=== PATIENT | male | born 1950 | race Caucasian/White ===

== ENCOUNTER 2024-10-03 11:34 | Outpatient (CLI) | payer MEDICARE, BC, SELFPAY ==
--- NOTE | 2024-10-03 12:50 | P.ANES_ITS ---
Anesthesia Charges Start Date/Time Anesthesia Start Date: 10/03/24 Anesthesia Start Time: 12:13 Stop Date/Time Anesthesia Stop Date: 10/03/24 Anesthesia Stop Time: 12:59 Summary Extremes of Age - Over 70 or under 1: MDA Coding CPT Codes CPT Codes: ANES LWR INTST NDSC NOS - 57884 ([id number]) P2 - PATIENT W/MILD SYST DISEASE, QK - CHANNEL LAYER 2-4 CNCRNT ANES PROC, QX - FRAUD EXAMINER SVC W/ MD MED DIRECTION Additional Codes: Summary - Extremes of Age - Over 70 or under 1: MDA ([id number])
--- NOTE | 2024-10-03 12:50 | W.ANESCHARGE ---
Anesthesia Charges Start Date/Time Anesthesia Start Date: 10/03/24 Anesthesia Start Time: 12:13 Stop Date/Time Anesthesia Stop Date: 10/03/24 Anesthesia Stop Time: 12:59 Summary Extremes of Age - Over 70 or under 1: MDA Coding CPT Codes CPT Codes: ANES LWR INTST NDSC NOS - 78885 ([id number]) P2 - PATIENT W/MILD SYST DISEASE, QK - COLLEGE OR UNIVERSITY BUSINESS MANAGER 2-4 CNCRNT ANES PROC, QX - DIRECTOR STARS SVC W/ MD MED DIRECTION Additional Codes: Summary - Extremes of Age - Over 70 or under 1: MDA ([id number])
--- NOTE | 2024-10-03 13:06 | P.ANES_ITS ---
Anesthesia Charges Start Date/Time Anesthesia Start Date: 10/03/24 Anesthesia Start Time: 12:13 Stop Date/Time Anesthesia Stop Date: 10/03/24 Anesthesia Stop Time: 12:59 Summary Extremes of Age - Over 70 or under 1: MILLER HEAD WET PROCESS Coding CPT Codes CPT Codes: VIELKA LWR INTST NDSC NOS - 02299 ([id number]) P2 - PATIENT W/MILD SYST DISEASE, QK - MANDREL PULLER 2-4 CNCRNT ANEEsha PROC, QX - MILLER HEAD WET PROCESS SVC W/ MD MED DIRECTION Additional Codes: Summary - Extremes of Age - Over 70 or under 1: MILLER HEAD WET PROCESS ([id number])
--- NOTE | 2024-10-03 13:06 | W.ANESCHARGE ---
Anesthesia Charges Start Date/Time Anesthesia Start Date: 10/03/24 Anesthesia Start Time: 12:13 Stop Date/Time Anesthesia Stop Date: 10/03/24 Anesthesia Stop Time: 12:59 Summary Extremes of Age - Over 70 or under 1: KOSHER DIETARY SERVICE SUPERVISOR Coding CPT Codes CPT Codes: VIELKA LWR INTST NDSC NOS - 26502 ([id number]) P2 - PATIENT W/MILD SYST DISEASE, QK - BREASTER 2-4 CNCRNT ANEEsha PROC, QX - KOSHER DIETARY SERVICE SUPERVISOR SVC W/ MD MED DIRECTION Additional Codes: Summary - Extremes of Age - Over 70 or under 1: KOSHER DIETARY SERVICE SUPERVISOR ([id number])
== END 2024-10-03 11:35 | disposition home or self-care (01) ==
PROVIDERS: PCP Family Medicine; Visit Provider Surgery
DX: D12.2 Benign neoplasm of ascending colon (principal); D12.3 Benign neoplasm of transverse colon; D12.8 Benign neoplasm of rectum; C80.1 Malignant (primary) neoplasm, unspecified; Z86.0100 Personal history of colon polyps, unspecified; R59.0 Localized enlarged lymph nodes; R19.7 Diarrhea, unspecified; R68.81 Early satiety
CPT/HCPCS: 00811; 36415; 45380; 45385; 82105; 82378; 84153; 84703; 86301; 88305; 99100; J2704

== ENCOUNTER 2024-10-18 07:04 | Outpatient (CLI) | payer MEDICARE, BC, SELFPAY ==
--- NOTE | 2024-10-18 07:15 | CRLHL7_ITS ---
For Patients: As a result of the Century Cures Act, medical imaging exams and procedure reports are released immediately into your electronic medical record. You may view this report before your referring provider. If you have questions, please contact your health care provider. Indication: SKIN CANCER Technique: Noncontrast sagittal T1, axial FLAIR, T2 turbo spine echo, and diffusion weighted images. Supplemental post contrast T1 weighted axial and coronal sequences are provided after administration of 30 cc Dotarem gadolinium-based IV contrast. Comparison: CT 12/22/2021 Findings: Multiple scattered small foci of T2 prolongation in the supratentorial white matter are nonspecific but statistically most likely to represent chronic small vessel disease. The pituitary gland, optic chiasm, pineal gland, and cerebellar tonsils are unremarkable. No abnormal susceptibility artifacts.. The midline structures are centrally located with no evidence of shift. Mild parenchymal volume loss. There are no suspicious intra or extra-axial fluid collections. No evidence of restricted diffusion to suggest acute ischemia. Expected flow voids in the cavernous carotids and basilar artery. No abnormal contrast enhancement involving the brain parenchyma, meninges, calvarium or skull base. Incidental developmental venous anomaly in the right frontal lobe. Rightward deviation of the nasal septum with septal spur. Impression: 1. No acute intracranial abnormalities. 2. Mild parenchymal volume loss and chronic small vessel ischemic changes. 3. No pathologic enhancement to suggest intracranial metastases. 4. Incidental developmental venous anomaly in the right frontal lobe. Dictated by Jae Cano MD @ 10/18/2024 11:36:47 AM (Electronically Signed)
== END 2024-10-18 07:05 | disposition home or self-care (01) ==
LOC: MRI 07:05
PROVIDERS: PCP Family Medicine; Visit Provider Internal Medicine Hematology & Oncology
DX: C44.90 Unspecified malignant neoplasm of skin, unspecified (principal); R16.0 Hepatomegaly, not elsewhere classified; R59.0 Localized enlarged lymph nodes
CPT/HCPCS: 36415; 70553; 80053; 82105; 82378; 83615; 84153; 85025; 86301; 99202; 99205; A9575

== ENCOUNTER 2024-10-24 09:46 | Outpatient (CLI) | payer MEDICARE, BC, SELFPAY ==
[2024-10-24 10:01] VITALS: BMI 29.3
[2024-10-24 10:24] VITALS: BP 127/74; PULSE 85; RESP 18; TEMP 36.7; O2SAT 98
--- NOTE | 2024-10-24 11:23 | P.ANES_ITS ---
Anesthesia Charges Start Date/Time Anesthesia Start Date: 10/24/24 Anesthesia Start Time: 11:21 Stop Date/Time Anesthesia Stop Date: 10/24/24 Anesthesia Stop Time: 11:42 Summary Extremes of Age - Over 70 or under 1: MDA Coding CPT Codes CPT Codes: ANESTH BONE ASPIRATE/BX - 61011 ([id number]) QK - PUBLIC RELATIONS PROFESSIONAL 2-4 CNCRNT ANES PROC, QX - COMPATIBILITY TEST ENGINEER SVC W/ MD MED DIRECTION, P3 - PATIENT W/SEVERE SYS DISEASE Additional Codes: Summary - Extremes of Age - Over 70 or under 1: MDA ([id number])
--- NOTE | 2024-10-24 11:23 | W.ANESCHARGE ---
Anesthesia Charges Start Date/Time Anesthesia Start Date: 10/24/24 Anesthesia Start Time: 11:21 Stop Date/Time Anesthesia Stop Date: 10/24/24 Anesthesia Stop Time: 11:42 Summary Extremes of Age - Over 70 or under 1: MDA Coding CPT Codes CPT Codes: ANESTH BONE ASPIRATE/BX - 06183 ([id number]) QK - BEATER AND PULPER FEEDER 2-4 CNCRNT ANES PROC, QX - CUSTOMER QUALITY SPECIALIST SVC W/ MD MED DIRECTION, P3 - PATIENT W/SEVERE SYS DISEASE Additional Codes: Summary - Extremes of Age - Over 70 or under 1: MDA ([id number])
[2024-10-24 11:40] VITALS: BP 96/50; PULSE 83; RESP 18; O2SAT 100
[2024-10-24 11:41] VITALS: BP 100/62; PULSE 81; RESP 16; O2SAT 100
--- NOTE | 2024-10-24 11:44 | P.ANES_ITS ---
Anesthesia Charges Start Date/Time Anesthesia Start Date: 10/24/24 Anesthesia Start Time: 11:21 Stop Date/Time Anesthesia Stop Date: 10/24/24 Anesthesia Stop Time: 11:42 Summary Extremes of Age - Over 70 or under 1: SKIDDER LEVER OPERATOR Coding CPT Codes CPT Codes: ANESTH BONE ASPIRATE/BX - 47169 ([id number]) P3 - PATIENT W/SEVERE SYS DISEASE, QK - OIL BAY TECHNICIAN 2-4 CNCRNT ANES PROC, QX - SKIDDER LEVER OPERATOR SVC W/ MD MED DIRECTION Additional Codes: Summary - Extremes of Age - Over 70 or under 1: SKIDDER LEVER OPERATOR ([id number])
--- NOTE | 2024-10-24 11:44 | W.ANESCHARGE ---
Anesthesia Charges Start Date/Time Anesthesia Start Date: 10/24/24 Anesthesia Start Time: 11:21 Stop Date/Time Anesthesia Stop Date: 10/24/24 Anesthesia Stop Time: 11:42 Summary Extremes of Age - Over 70 or under 1: SENIOR FRONT END WEB DEVELOPER Coding CPT Codes CPT Codes: ANESTH BONE ASPIRATE/BX - 40459 ([id number]) P3 - PATIENT W/SEVERE SYS DISEASE, QK - HIGH SCHOOL DRAFTING TEACHER 2-4 CNCRNT ANES PROC, QX - SENIOR FRONT END WEB DEVELOPER SVC W/ MD MED DIRECTION Additional Codes: Summary - Extremes of Age - Over 70 or under 1: SENIOR FRONT END WEB DEVELOPER ([id number])
[2024-10-24 11:45] VITALS: BP 106/61; PULSE 82; RESP 16; O2SAT 96
[2024-10-24 11:52] VITALS: BP 106/67; PULSE 82; RESP 18; O2SAT 96
[2024-10-24 11:55] LABS: Basophils Percent Auto 0.3 % (0.0-3.0); Eosinophils Percent Auto 0.8 % (0.0-7.0); Hematocrit 32.2 % (37.0-53.0); Hemoglobin* 10.4 gm/dL (13.5-17.5); Immature Granulocytes Pct Auto 1.2 %; Immature Reticulocyte Fraction 28.6 % (2.3-13.4); Lymphocytes Percent Auto 8.3 % (20-44); Mean Corpuscular HGB Conc 32 gm/dL (32-36); Mean Corpuscular Hemoglobin 28 pg (26-34); Mean Corpuscular Volume 88 fL (80-100); Monocytes Percent Auto 7.6 % (0.0-11.0); Neutrophils Percent Auto 81.8 % (42.0-72.0); Platelet Count* 373 K/uL (140-440); RDW Coefficient of Variation % 14.3 % (11.5-15.5); Red Blood Count 3.66 m/uL (4.30-5.90); Reticulocyte Hemoglobin Equivi 28.8 pg (29.0-35.0); Reticulocyte Percent 2.8 % (0.5-2.0); White Blood Count* 11.19 K/uL (4.50-11.00)
[2024-10-24 11:56] LABS: Slide Review Reflex No
[2024-10-24 12:09] VITALS: BP 107/66; PULSE 79; RESP 18; O2SAT 97
[2024-10-25 14:51] LABS: Beta-hCG Quant Tumor Marker 9 IU/L (0-3)
== END 2024-10-24 12:26 | disposition home or self-care (01) ==
LOC: OP CLINIC 09:47
PROVIDERS: PCP Family Medicine; Visit Provider Internal Medicine Hematology & Oncology
DX: D47.9 Neoplasm of uncertain behavior of lymphoid, hematopoietic and related tissue, unspecified (principal); C80.1 Malignant (primary) neoplasm, unspecified; C77.2 Secondary and unspecified malignant neoplasm of intra-abdominal lymph nodes; R10.84 Generalized abdominal pain; D64.9 Anemia, unspecified; I12.9 Hypertensive chronic kidney disease with stage 1 through stage 4 chronic kidney disease, or unspecified chronic kidney disease; E11.22 Type 2 diabetes mellitus with diabetic chronic kidney disease; N18.30 Chronic kidney disease, stage 3 unspecified
CPT/HCPCS: 01112; 36415; 38222; 84702; 85025; 85045; 88237; 88264; 88305; 88311; 88313; 88341; 88342; 88360; 99100; J1644; J2003; J2704

== ENCOUNTER 2024-10-26 07:55 | Day surgery (SDC) | payer MEDICARE, BC, SELFPAY ==
[2024-10-26 08:10] VITALS: BP 136/96; PULSE 91; RESP 16; TEMP 35.7; O2SAT 100; BMI 32.4
[2024-10-26] MEDS: LACTATED RINGERS 1000 ML 1,000 ML 100 ML IV (08:35)
[2024-10-26] MEDS: SODIUM CHLORIDE 0.9 % (FLUSH) 10 ML SYRINGE IVF (08:35)
--- NOTE | 2024-10-26 09:15 | CRLHL7_ITS ---
For Patients: As a result of the Cures Act, medical imaging exams and procedure reports are released immediately into your electronic medical record. You may view this report before your referring provider. If you have questions, please contact your health care provider. Indication: Port-A-Cath placement. Technique: Fluoroscopic guidance was utilized by Dr. Gray. One spot radiographic image was obtained. 15 seconds of fluoroscopy time was utilized. Dictated by Qasim Brooks MD @ 10/26/2024 2:30:05 PM (Electronically Signed)
--- NOTE | 2024-10-26 09:50 | P.ANES_ITS ---
Anesthesia Charges Start Date/Time Anesthesia Start Date: 10/26/24 Anesthesia Start Time: 10:00 Stop Date/Time Anesthesia Stop Date: 10/26/24 Anesthesia Stop Time: 11:05 Summary Extremes of Age - Over 70 or under 1: MDA Coding CPT Codes CPT Codes: ANESTH VASCULAR ACCESS - 09597 ([id number]) P3 - PATIENT W/SEVERE SYS DISEASE, QK - RETAIL BUSINESS MANAGER 2-4 CNCRNT ANES PROC, QX - AGRICULTURE TECHNICIAN SVC W/ MD MED DIRECTION Additional Codes: Summary - Extremes of Age - Over 70 or under 1: MDA ([id number])
--- NOTE | 2024-10-26 09:50 | W.ANESCHARGE ---
Anesthesia Charges Start Date/Time Anesthesia Start Date: 10/26/24 Anesthesia Start Time: 10:00 Stop Date/Time Anesthesia Stop Date: 10/26/24 Anesthesia Stop Time: 11:05 Summary Extremes of Age - Over 70 or under 1: MDA Coding CPT Codes CPT Codes: ANESTH VASCULAR ACCESS - 05407 ([id number]) P3 - PATIENT W/SEVERE SYS DISEASE, QK - SEWER TAPPER 2-4 CNCRNT ANES PROC, QX - PROFESSOR OF PUBLIC ADMINISTRATION SVC W/ MD MED DIRECTION Additional Codes: Summary - Extremes of Age - Over 70 or under 1: MDA ([id number])
[2024-10-26] MEDS: CEFAZOLIN 1 GM inj IVP (10:22)
--- NOTE | 2024-10-26 10:24 | PM.GSCN ---
History of Present Illness Consult details Date Seen: 10/26/24 Consult date: 10/26/24 Narrative: The patient is a 73-year-old male who is here today for port placement. He has a history of type 2 diabetes, hypertension and CKD, and was found incidentally to have lymphadenopathy in his abdomen on a CT scan done during hospitalization at [facility]. 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 Port placement was requested by the patient's oncologist for chemotherapy. He has never had a port before. He has no chest pain, shortness of breath or any respiratory symptoms. [facility] Medical History Enlarged lymph node ?R59.9 - Enlarged lymph nodes, unspecified (ICD-10) Anemia ?D64.9 - Anemia, unspecified (ICD-10) Chronic kidney disease, stage 3 ?N18.30 - Chronic kidney disease, stage 3 unspecified (ICD-10) Coronary artery disease ?I25.10 - Atherosclerotic heart disease of [place] coronary artery without angina pectoris (ICD-10) Hypothyroidism ?E03.9 - Hypothyroidism, unspecified (ICD-10) Essential hypertension ?I10 - Essential (primary) hypertension (ICD-10) Type II diabetes mellitus ?E11.9 - Type 2 diabetes mellitus without complications (ICD-10) Lymphoproliferative disease ?D47.9 - Neoplasm of uncertain behavior of lymphoid, hematopoietic and related tissue, unspecified (ICD-10) Malignant neoplasm of unknown origin ?C80.1 - Malignant (primary) neoplasm, unspecified (ICD-10) [place] lymph node NOS ?C77.9 - Secondary and unspecified malignant neoplasm of lymph node, unspecified (ICD-10) Surgical History Stented coronary artery ?Z95.5 - Presence of coronary angioplasty implant and graft (ICD-10) Social History Smoking Status: Former smoker Do you use any of these nicotine containing products: None How often do you have a drink containing alcohol: 2-4 times a month Alcohol type details: patient has not had alcohol in a couple of months How many standard drinks containing alcohol do you have on a typical day: 1 or 2 AUDIT-C Alcohol total score: 2 Non-prescribed substance use: denies use Caffeine: Yes Meds Home Medications and Allergies Home Medications ?Medication ?Instructions ?Recorded ?Confirmed ?Type ascorbate calcium (vitamin C) 500 500 mg feeding tube QDAY 10/18/24 10/18/24 History mg tablet aspirin 81 mg tablet 81 mg PO QDAY 10/18/24 10/18/24 History atorvastatin 80 mg tablet 80 mg PO DAILY 10/18/24 10/18/24 History ferrous gluconate 324 mg (37.5 mg 324 mg PO QDAY 10/18/24 10/18/24 History iron) tablet inulin 2.5 gram chewable tablet g PO 10/18/24 10/18/24 History levothyroxine 88 mcg capsule 88 mcg PO QDAY 10/18/24 10/18/24 History mecobalamin (vitamin B12) 1,000 1,000 mcg PO QDAY 10/18/24 10/18/24 History mcg chewable tablet metoprolol succinate 25 mg 25 mg PO DAILY 10/18/24 10/18/24 History tablet,extended release 24 hr nitroglycerin 0.4 mg sublingual mg sublingual 10/18/24 10/18/24 History tablet omeprazole 20 mg capsule,delayed 40 mg PO QDAY 10/18/24 10/18/24 History release pioglitazone 30 mg tablet 30 mg PO QDAY 10/18/24 10/18/24 History polyethylene glycol 3350 17 gram 17 g PO QDAY PRN 10/18/24 10/18/24 History oral powder packet (Miralax) sodium chloride 1,000 mg soluble 1,000 mg PO BID electrolyte 10/18/24 10/18/24 Rx tablet replenishment #20 tabs Allergies Allergy/AdvReac Type Severity Reaction Status Date / Time lisinopril AdvReac Mild coughing Verified 10/18/24 08:54 Exam Narrative: Exam Narrative: General appearance: Alert, cooperative, and in no distress Eyes: PERRLA, eye lids clear, and sclera white HENT Head: Normocephalic Ears: External ears normal Chest: No scars on his upper chest Pulmonary: Breathing nonlabored on room air Cardiovascular Heart: Regular rate Skin: Normal skin color, texture, and turgor. Neurologic: No focal deficits Psychiatric: Alert, oriented, cooperative, normal affect. Const: Vital Signs, click to edit/add: Vital Signs - 24 hr 06/05/25 08:10 Temperature 96.2 F L Pulse Rate 91 Respiratory Rate 16 Blood Pressure 136/96 H Pulse Oximetry 100 Oxygen Delivery Me thod Room Air Results Labs Labs: Labs reviewed. Hemoglobin is 10.4. Platelets [address] scan report/results: report reviewed and image reviewed CT scan - chest: report reviewed and image reviewed Additional studies: EXAM: CT CHEST ABDOMEN PELVIS WO LOCATION: [facility] MEDICAL IMAGING DATE: 09/13/2024 INDICATION: Lymphadenopathy, groin. COMPARISON: 04/24/15 TECHNIQUE: CT scan of the chest, abdomen, and pelvis was performed without IV contrast. Multiplanar reformats were obtained. Dose reduction techniques were used. CONTRAST: None. FINDINGS: LUNGS AND PLEURA: Elevation of the left hemidiaphragm causes some linear atelectasis in the left lower lobe. Question left diaphragmatic paralysis. The right lung is clear. No nodules or masses. No effusions. MEDIASTINUM/AXILLAE: No mediastinal or hilar adenopathy. No axillary adenopathy. CORONARY ARTERY CALCIFICATION: Severe. HEPATOBILIARY: Normal. PANCREAS: Normal. SPLEEN: Normal. ADRENAL GLANDS: Normal. KIDNEYS/BLADDER: No stones. No hydronephrosis. BOWEL: Normal. LYMPH NODES: Multiple enlarged upper retroperitoneal lymph nodes the largest lying anterior to the inferior vena cava posterior to the head of the pancreas series 3 image 104 measuring 5.7 cm transverse dimension 3.7 cm anterior posterior dimension. Enlarged lymph nodes in the ab hepatis measuring up to 3.8 x 3.6 cm. VASCULATURE: Normal. PELVIC ORGANS: No pelvic or inguinal lymphadenopathy. MUSCULOSKELETAL: Small sclerotic focus in the left iliac bone is favored to represent a small bone island. IMPRESSION: 1. Retroperitoneal and ab hepatis lymphadenopathy. Differential considerations would include lymphoproliferative process or metastatic disease from an unknown primary. No primary malignancy is identified on this examination. Progress Note:A&P Assessment and plan (1) Malignant neoplasm of unknown origin: Status: Acute Plan The patient is a 73-year-old male with neoplasm of unknown origin who is here today for port placement for chemotherapy. We discussed risks and benefits of the procedure as well as recovery. He is agreeable to proceed. He has no contraindications to surgery today.
[2024-10-26] MEDS: 0.9% SODIUM CHL 50 ML VIAL INJECTION (10:50)
[2024-10-26] MEDS: BUPIVACAINE 0.5% 30 ML INJECTION (10:50)
[2024-10-26] MEDS: HEPARIN 500 UNIT/5 ML SYRINGE IVF (10:50)
[2024-10-26] MEDS: LIDOCAINE 1% MDV 20 ML INJECTION (10:50)
[2024-10-26 11:00] VITALS: BP 116/71; PULSE 86; RESP 14; TEMP 36.6; O2SAT 91
--- NOTE | 2024-10-26 11:04 | CRLHL7_ITS ---
For Patients: As a result of the Century Cures Act, medical imaging exams and procedure reports are released immediately into your electronic medical record. You may view this report before your referring provider. If you have questions, please contact your health care provider. Indication: Port-A-Cath placement. Technique: AP portable view of the chest. Comparison: None. Findings: A right chest wall port is present with catheter tip superimposed over the lower SVC. No pneumothorax is identified. No pleural effusion. Multifocal nodular opacity superimposed over the right mid lung zone are present. There is elevation of the left diaphragm with linear atelectasis and/or scar in the left lung base. The heart is normal in size. The pulmonary vasculature is unremarkable. Impression: 1. Right chest wall port catheter tip superimposed over the lower SVC. No pneumothorax. 2. Multifocal nodular opacity superimposed over the right mid lung zone, indeterminate. Correlate with chest CT. Dictated by Qasim Brooks MD @ 10/26/2024 2:32:09 PM (Electronically Signed)
--- NOTE | 2024-10-26 11:05 | P.ANES_ITS ---
Anesthesia Charges Start Date/Time Anesthesia Start Date: 10/26/24 Anesthesia Start Time: 10:00 Stop Date/Time Anesthesia Stop Date: 10/26/24 Anesthesia Stop Time: 11:05 Coding CPT Codes CPT Codes: ANESTH VASCULAR ACCESS - 42762 ([id number]) P3 - PATIENT W/SEVERE SYS DISEASE, QK - AIRCRAFT PNEUDRAULIC SYSTEMS MECHANIC 2-4 CNCRNT ANES PROC, QX - MENTAL HEALTH NURSE SVC W/ MD MED DIRECTION
--- NOTE | 2024-10-26 11:05 | W.ANESCHARGE ---
Anesthesia Charges Start Date/Time Anesthesia Start Date: 10/26/24 Anesthesia Start Time: 10:00 Stop Date/Time Anesthesia Stop Date: 10/26/24 Anesthesia Stop Time: 11:05 Coding CPT Codes CPT Codes: ANESTH VASCULAR ACCESS - 39322 ([id number]) P3 - PATIENT W/SEVERE SYS DISEASE, QK - GREEN CHAIN PULLER 2-4 CNCRNT ANES PROC, QX - COOK'S ASSISTANT SVC W/ MD MED DIRECTION
[2024-10-26 11:15] VITALS: BP 125/70; PULSE 76; RESP 16; O2SAT 98
--- NOTE | 2024-10-26 11:17 | PM.GSPRC ---
Operative Note Date of procedure: 10/26/24 Pre-op diagnosis: Malignant neoplasm of unknown origin Post-op diagnosis: Same Type of Procedure: Right internal jugular Port-A-Cath placement with ultrasound and fluoroscopic guidance Indications: The patient is a 73-year-old male with a malignant neoplasm of unknown origin. Port placement was requested for chemotherapy administration. After discussion of risks and benefits, the patient agreed to proceed. Procedure Description: After discussing the risks and benefits of the procedure, the patient signed informed consent.? The operative site was marked and the patient was brought to the operating room and placed on the operating table in supine position.? Care was taken to pad the patient's pressure points.?? The patient was then given sedation by anesthesia.?? The operative site was then prepped and draped in the usual sterile fashion.? A time-out was then performed. The patient's right internal jugular vein was visualized using ultrasound. Local anesthetic was injected into the skin overlying the vein. This was accessed percutaneously using ultrasound guidance. Using Seldinger technique, a guidewire was threaded through the needle. A skin iveth was made around the wire. Next, local anesthetic was injected into the skin below the clavicle and along the proposed tract to the neck incision. A skin incision was then made with a 15 blade and a pocket created in the subcutaneous tissue with cautery. A tunneler was then used to thread the catheter from the chest wall pocket to the neck incision. Once this was done fluoroscopy was brought into the field. Over the wire the tract was dilated using fluoroscopy. The wire and the dilator were then removed leaving the sheath in the vein. Through this, the catheter was threaded. Using fluoroscopy, the catheter was positioned into the distal SVC. The catheter was noted to flush and aspirate easily. The catheter was then connected to the port. The port was placed in the pocket and secured in place with 2 0 Prolene sutures. It was noted to flush and aspirate easily. This was then locked with heparinized saline. The skin was closed with absorbable suture. Glue was applied. Instrument sponge and needle counts were correct at the end of the case. The patient was woken and taken to the PACU in stable condition. The patient tolerated the procedure well. Findings: Right IJ power port placed in the low SVC Anesthesia: MAC Surgeon: Namrata Gray MD Estimated blood loss (mL): 5 Condition: stable Disposition: same day
[2024-10-26 11:30] VITALS: BP 132/79; PULSE 78; RESP 16; O2SAT 100
[2024-10-26 11:45] VITALS: BP 126/76; PULSE 74; RESP 16; O2SAT 100
== END 2024-10-26 12:15 | disposition home or self-care (01) ==
PROVIDERS: PCP Family Medicine; Visit Provider Surgery
PROC: (CPT 36561; principal; 2024-10-26 09:15)
DX: Z45.2 Encounter for adjustment and management of vascular access device (principal); C80.1 Malignant (primary) neoplasm, unspecified; C77.2 Secondary and unspecified malignant neoplasm of intra-abdominal lymph nodes; I12.9 Hypertensive chronic kidney disease with stage 1 through stage 4 chronic kidney disease, or unspecified chronic kidney disease; E11.22 Type 2 diabetes mellitus with diabetic chronic kidney disease; N18.30 Chronic kidney disease, stage 3 unspecified; Z79.4 Long term (current) use of insulin
CPT/HCPCS: 36561; 00532; 71045; 76000; 76998; 82962; 99100; J2003; C1788; J0665; J0690; J1100; J1642; J2405; J2704; J3010; J3490; J7120

== ENCOUNTER 2024-10-27 12:36 | Outpatient (CLI) | payer MEDICARE, BC, SELFPAY ==
--- NOTE | 2024-10-27 13:00 | CRLHL7_ITS ---
For Patients: As a result of the Century Cures Act, medical imaging exams and procedure reports are released immediately into your electronic medical record. You may view this report before your referring provider. If you have questions, please contact your health care provider. INDICATION: Skin cancer TECHNIQUE: Multiplanar imaging of the abdomen was performed without and with 20 cc of Dotarem contrast material IV. COMPARISON: Chest/abdomen/pelvis CT 09/13/2024 FINDINGS: A 6.5 x 5.5 x 3.5 cm malignant-appearing liver mass is demonstrated at the junction of segments 2 and 4A. This lesion is heterogeneous in signal prior to contrast administration and demonstrates diffusion restriction as well as heterogeneous contrast enhancement. No other obvious liver lesion is demonstrated. The bile ducts are normal in caliber. Bulky, confluent ab hepatis and retroperitoneal lymphadenopathy is demonstrated. The largest discrete node is demonstrated on the right on image 44 of series 21, measuring 5.1 x 5.1 cm. Mildly enlarged retrocrural lymph nodes are also demonstrated on both sides. The spleen and adrenal glands are negative. The pancreas is displaced anteriorly by the retroperitoneal lymphadenopathy. The kidneys are unremarkable. No lymphadenopathy is apparent. No intrinsic bowel abnormality is evident. No free fluid is demonstrated. IMPRESSION: 1. Malignant-appearing 6.2 x 5.5 x 3.5 cm liver mass at the junction of segments 2 and 4A, likely a metastasis. 2. Bulky ab hepatis and retroperitoneal lymphadenopathy as well as mild retrocrural lymphadenopathy. Dictated by Ed Camara MD @ 10/31/2024 11:20:22 AM (Electronically Signed)
== END 2024-10-27 12:37 | disposition home or self-care (01) ==
LOC: MRI 12:36
PROVIDERS: PCP Family Medicine; Visit Provider Internal Medicine Hematology & Oncology
DX: C44.90 Unspecified malignant neoplasm of skin, unspecified (principal); R16.0 Hepatomegaly, not elsewhere classified; R59.0 Localized enlarged lymph nodes; D47.9 Neoplasm of uncertain behavior of lymphoid, hematopoietic and related tissue, unspecified
CPT/HCPCS: 74183; A9575

== ENCOUNTER 2024-11-01 10:30 | Outpatient (RCR) | payer MEDICARE, BC, SELFPAY ==
[2024-10-18 10:14] LABS: Hematocrit* 30.0 % (37.0-53.0); Hemoglobin* 9.8 gm/dL (13.5-17.5); Immature Granulocytes Pct Auto 1.2 %; Mean Corpuscular HGB Conc 33 gm/dL (32-36); Mean Corpuscular Hemoglobin 29 pg (26-34); Mean Corpuscular Volume 88 fL (80-100); RDW Coefficient of Variation % 14.0 % (11.5-15.5); Red Blood Count* 3.43 m/uL (4.30-5.90); White Blood Count* 12.51 K/uL (4.50-11.00)
[2024-10-18 10:15] LABS: Immature Granulocytes Abs Auto 0.20 K/uL (0.00-0.30); Lymphocytes Absolute Auto 0.90 K/uL (0.90-2.90); Slide Review Reflex No
[2024-10-18 10:25] LABS: Albumin* 3.6 g/dL (3.3-5.0); Chloride* 90 mmol/L (96-114); Potassium* 3.6 mmol/L (3.6-5.1); Sodium* 129 mmol/L (135-149)
[2024-10-18 10:27] LABS: Blood Urea Nitrogen* 17 mg/dL (7-30); Creatinine* 1.2 mg/dL (0.5-1.5); Est. Creatinine Clearance* 53.83; Estimated Glomerular Filt Rate 64 ml/min
[2024-10-18 10:28] LABS: Alanine Aminotransferase* 22 U/L (4-50); Alkaline Phosphatase* 125 U/L (40-150); Anion Gap 8 mEq/L (7-15); Aspartate Amino Transferase* 32 U/L (12-35); Bilirubin Total* 0.9 mg/dL (0.1-1.5); Calcium* 9.2 mg/dL (8.4-10.6); Carbon Dioxide* 31 mmol/L (20-32); Glucose* 175 mg/dL (60-115); Total Protein* 6.6 g/dL (6.0-8.3)
[2024-10-18 10:59] LABS: PSA Diagnostic* 0.38 ng/mL (0.10-4.00)
[2024-10-19 21:05] LABS: Cancer Antigen-GI (CA 19-9) 21 U/mL (<=35); Carcinoembryonic Antigen 3.4 ng/mL
== END 2024-12-23 23:59 | disposition home or self-care (01) ==
LOC: CCIC 10:30
PROVIDERS: PCP Family Medicine; Visit Provider Internal Medicine Hematology & Oncology
DX: C80.1 Malignant (primary) neoplasm, unspecified (principal); C78.7 Secondary malignant neoplasm of liver and intrahepatic bile duct; I12.9 Hypertensive chronic kidney disease with stage 1 through stage 4 chronic kidney disease, or unspecified chronic kidney disease; N18.30 Chronic kidney disease, stage 3 unspecified; E11.9 Type 2 diabetes mellitus without complications; E78.5 Hyperlipidemia, unspecified; E03.9 Hypothyroidism, unspecified; Z87.891 Personal history of nicotine dependence
CPT/HCPCS: 36415; 80053; 82105; 82378; 83615; 84153; 85025; 86301; 99202; 99205; 99215; G0463